=== PATIENT | female | born 1995 | race Two or more races ===

== ENCOUNTER 2023-04-12 21:03 | Observation (INO) | payer OTHER ==
[~2023-04-12] VITALS: Ht 170.2 cm; Wt 90.9 kg
[2023-04-12 21:14] VITALS: BP 116/78; RESP 18; O2SAT 99
[2023-04-12 21:20] VITALS: PULSE 90
[2023-04-12] MEDS ORDERED: ACCU-CHEK COMFORT CURVE STRIP VI ONE (21:30)
[2023-04-12] MEDS ORDERED: LACTATED RINGER'S 1,000 ML IV SCH (22:15)
[2023-04-12 22:23] LABS: Basophils # (auto) 0 10 ^3/uL (0-0.2); Basophils % (auto) 0.5 % (0.0-2.0); Eosinophils # (auto) 0.1 10 ^3/uL (0-0.8); Eosinophils % (auto) 1.2 % (0.0-7.0); Hemoglobin 13.3 g/dL (12.2-16.2); Lymphocytes # (auto) 1.2 10 ^3/uL (0.4-5.4); Lymphocytes % (auto) 13.3 % (10.0-50.0); Mean Corpuscular Hemoglobin 30.6 pg (28.0-32.0); Mean Corpuscular Volume 89.9 fL (80.0-100.0); Monocytes # (auto) 0.5 10 ^3/uL (0-1.3); Monocytes % (auto) 5.3 % (0.0-12.0); Neutrophils # (auto) 7.4 10 ^3/uL (1.6-8.6); Neutrophils % (auto) 79.7 % (37.0-80.0); Red Blood Cells 4.34 10^6/uL (4.0-5.20); Red Cell Distribution Width 13.6 % (11.8-14.3); White Blood Cell 9.2 10^3/uL (4.4-10.8)
[2023-04-12 22:39] LABS: INR 0.98 (0.9-1.15); Partial Thromboplastin Time 29.4 SEC (24.5-34.5)
[2023-04-12 22:41] LABS: Albumin 2.9 g/dL (3.4-5.0); Calcium 8.4 mg/dL (8.5-10.1); Potassium 3.5 mmol/L (3.5-5.1)
[2023-04-12 22:44] LABS: BUN/Creatinine Ratio 11.1 (10.0-20.0); Bilirubin, Total 0.4 mg/dL (0.2-1.0); Total Protein 6.7 g/dL (6.4-8.2)
== END 2023-04-12 23:40 | disposition home or self-care (01) ==
LOC: EDBD 21:03 → ER 21:08 → LDRP 21:22
PROVIDERS: ADMIT Obstetrics & Gynecology; ATTEND Obstetrics & Gynecology
DX: O26.893 Other specified pregnancy related conditions, third trimester (principal); R55 Syncope and collapse; R10.2 Pelvic and perineal pain; Z3A.28 28 weeks gestation of pregnancy
CPT/HCPCS: 36415; 59025; 76815; 80053; 81002; 82962; 84702; 85025; 85610; 85730; 93005; 94760; 96360; G0378; 96365